=== PATIENT | male | born 1985 | race Asian ===

== ENCOUNTER 2022-03-08 09:58 | Emergency (ER) | payer MEDICAID, OTHER ==
[~2022-03-08] VITALS: Ht 175.3 cm; Wt 100.0 kg
[2022-03-08 10:07] VITALS: BP 170/102
[2022-03-08] MEDS ORDERED: CEPH-510 PO (10:48)
[2022-03-08] MEDS ORDERED: ACET-1158 PO (10:48)
== END 2022-03-08 11:11 | disposition home or self-care (01) ==
LOC: ER 09:58 → EDBD 09:58 → ER 11:11
DX: S51.812A Laceration without foreign body of left forearm, initial encounter (principal); Z79.899 Other long term (current) drug therapy; W26.8XXA Contact with other sharp object(s), not elsewhere classified, initial encounter; Y93.89 Activity, other specified; Y92.89 Other specified places as the place of occurrence of the external cause; Y99.8 Other external cause status
CPT/HCPCS: 12004; 99283; J2001

== ENCOUNTER 2022-03-10 07:48 | Emergency (ER) | payer MEDICAID ==
[~2022-03-10] VITALS: Ht 175.3 cm; Wt 100.0 kg
[~2022-03-10 07:48] MED LIST: ACET-1158 PO; CEPH-510 PO
[2022-03-10 09:26] VITALS: BP 162/117
== END 2022-03-10 09:42 | disposition home or self-care (01) ==
LOC: ER 07:48
DX: S51.812D Laceration without foreign body of left forearm, subsequent encounter (principal); Z79.899 Other long term (current) drug therapy; W25.XXXD Contact with sharp glass, subsequent encounter

== ENCOUNTER 2023-01-18 07:59 | Emergency (ER) | payer OTHER ==
[~2023-01-18] VITALS: Ht 172.7 cm; Wt 86.0 kg
[~2023-01-18 07:59] MED LIST changes: -ACET-1158 PO; +ACET500T58 PO; +IBUP-1456 PO
[2023-01-18 11:12] VITALS: BP 145/94; PULSE 92; RESP 18; O2SAT 98
== END 2023-01-18 11:11 | disposition home or self-care (01) ==
LOC: EDBD 07:59 → ER 07:59
DX: S70.11XA Contusion of right thigh, initial encounter (principal); Z79.899 Other long term (current) drug therapy; V89.2XXA Person injured in unspecified motor-vehicle accident, traffic, initial encounter; Y93.89 Activity, other specified; Y92.89 Other specified places as the place of occurrence of the external cause; Y99.8 Other external cause status
CPT/HCPCS: 72192; 73700